=== PATIENT | female | born 1990 | race American Indian/Alaskan Native ===

== ENCOUNTER 2020-06-08 01:24 | Emergency (ER) | payer SELFPAY ==
[2020-06-08 01:57] VITALS: BP 107/76
--- NOTE | 2020-06-08 03:48 | XRay Report ---
RIGHT ANKLE 3 VIEW INDICATION / CLINICAL INFORMATION: right ankle pain. COMPARISON: None available. FINDINGS: BONES/JOINT(S): There is a mildly displaced comminuted fracture of the base of the fifth metatarsal. There is no other acute fracture. SOFT TISSUES: No significant abnormality. ADDITIONAL FINDINGS: None. Signer Name: Damián Thrasher MD Signed: 06/08/2020 3:43 AM Workstation Name: [id number]
== END 2020-06-08 04:30 | disposition left against medical advice (07) ==
LOC: ED 01:24
DX: S99.911A Unspecified injury of right ankle, initial encounter (principal); Z53.21 Procedure and treatment not carried out due to patient leaving prior to being seen by health care provider; X50.1XXA Overexertion from prolonged static or awkward postures, initial encounter; Y93.89 Activity, other specified; Y92.89 Other specified places as the place of occurrence of the external cause; Y99.8 Other external cause status